=== PATIENT | female | born 1990 | race African-American/Black ===

== ENCOUNTER 2016-09-25 12:14 | Emergency (ER) | payer OTHER ==
[~2016-09-25] VITALS: Ht 160 cm; Wt 53.5 kg
[2016-09-25 12:27] VITALS: BP 128/85
--- NOTE | 2016-09-25 12:33 | NUR ---
PATIENT AMBULATED TO BED 4.
[2016-09-25] MEDS ORDERED: ONDANSETRON 4 MG ODT PO ONE (12:35)
[2016-09-25] MEDS ORDERED: HYDROcodone/APAP 5/325 MG 1 TAB TAB PO ONE (12:35)
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
--- NOTE | 2016-09-25 12:57 | NUR ---
PT TO CT VIA WHEELCHAIR
--- NOTE | 2016-09-25 13:12 | NUR ---
PT RETURNED FROM CT VIA WHEELCHAIR
--- NOTE | 2016-09-25 13:51 | NUR ---
Patient discharged with v/s stable. Written and verbal after care instructions given and explained. Patient alert, oriented and verbalized understanding of instructions. Ambulatory with steady gait. All questions addressed prior to discharge. ID band removed. Patient advised to follow up with PMD. Rx of MOTRIN/ ZOFRAN given. Patient educated on indication of medication including possible reaction and side effects. Opportunity to ask questions provided and answered.
[2016-09-25 13:53] VITALS: BP 118/72
== END 2016-09-25 13:51 | disposition home or self-care (01) ==
LOC: MED 12:14
DX: S09.90XA Unspecified injury of head, initial encounter (principal); Z88.8 Allergy status to other drugs, medicaments and biological substances; Z88.2 Allergy status to sulfonamides; V43.52XA Car driver injured in collision with other type car in traffic accident, initial encounter; Y93.I9 Activity, other involving external motion; Y92.488 Other paved roadways as the place of occurrence of the external cause; Y99.8 Other external cause status
CPT/HCPCS: 70450; 99284; S0119